=== PATIENT | female | born 1945 | race Caucasian/White ===

== ENCOUNTER → 2016-10-12 | Outpatient (CLI) | payer OTHER, BC ==
[~2016-10-12] VITALS: Ht 166.4 cm; Wt 96.0 kg
[~2016-10-12] MED LIST: ADVAIR 250-501 EACH; ADVAIR HFA120 INHALA IH; ADVIL200 M2 PO; ADVIL200 MG PO; ALIGN10.5 MG PO; Advair HFA 115/21 IH; B-12500 MC1 SL; CALTRATE PLUS1 EACH PO; CEFTIN500 MG PO; COLACE100 MG PO; CRESTOR10 MG PO; CRESTOR5 MG PO; DETROL LA4 MG; Dulcolax PO; Dulcolax PR; ENDOCET 5-3251 EACH PO; FAMOTIDINE40 MG PO; FLEXERIL10 MG PO; FLUOXETINE HCL40 MG PO; Flexeril PO; LIDODERM 5% P1 PATCH TD; MAGNESIUM400 M1 PO; MEDROL DOSEPAK4 MG PO; MORPHINE SULFAT15 MG PO; Milk Of Magnesia,MOM PO; OxyCONTIN PO; PRAVASTATIN SOD80 MG PO; PRILOSEC20 MG PO; PROTONIX40 MG PO; PROZAC10 MG PO; Proventil,Ventolin H IH; RESTASIS 01 DROP/0.4 BOTH EYES; Restasis 0.05% BOTH EYES; Rocephin IV; SENOKOT S,PE1 TABLET PO; SPIRIVA1 INHALATI IH; THERAGRAN1 TABLET PO; Tums,OsCal PO; Tylenol Regular Stre PO; ZOFRAN4 MG PO; Zithromax PO
[2016-10-12 13:03] VITALS: BP 124/62
== END | disposition home or self-care (01) ==
LOC: IVINF 10-11 15:00
DX: M81.0 Age-related osteoporosis without current pathological fracture (principal); Z88.5 Allergy status to narcotic agent; Z88.8 Allergy status to other drugs, medicaments and biological substances; Z91.048 Other nonmedicinal substance allergy status
CPT/HCPCS: 96365; J3489

== ENCOUNTER → 2017-02-14 | Outpatient (CLI) | payer MEDICARE, BC | END | disposition home or self-care (01) | LOC: CDC 11:12 | DX: Z01.810 Encounter for preprocedural cardiovascular examination (principal); M65.332 Trigger finger, left middle finger; M79.642 Pain in left hand; I44.0 Atrioventricular block, first degree | CPT/HCPCS: 93000 ==

== ENCOUNTER 2017-02-28 11:32 | Emergency (ER) | payer OTHER, BC ==
[~2017-02-28] VITALS: Ht 165.1 cm; Wt 75.3 kg
[2017-02-28 14:12] LABS: CHLORIDE 109 mEq/L (99-109); POTASSIUM 3.5 mEq/L (3.7-5.4); SODIUM 142 mEq/L (136-147)
[2017-02-28 14:14] LABS: GLUCOSE 105 mg/dL (70-99)
[2017-02-28 14:16] LABS: ANION GAP 10 MEQ/L (2-14)
[2017-02-28 14:18] LABS: GFR ESTIMATE (CALCULATED) > 59 mL/min/
[2017-02-28 14:19] LABS: UREA NITROGEN (BUN) 16 mg/dL (9-23)
[2017-02-28 17:44] VITALS: BP 118/70
== END 2017-02-28 17:45 | disposition home or self-care (01) ==
LOC: EME 11:32
PROVIDERS: Physician Assistant
DX: R06.00 Dyspnea, unspecified (principal); Z85.118 Personal history of other malignant neoplasm of bronchus and lung; Z98.890 Other specified postprocedural states; Z87.891 Personal history of nicotine dependence; K21.9 Gastro-esophageal reflux disease without esophagitis; F41.9 Anxiety disorder, unspecified; F32.9 Major depressive disorder, single episode, unspecified; Z88.8 Allergy status to other drugs, medicaments and biological substances
CPT/HCPCS: 71020; 78582; 80048; 85379; 94640; 99281; 99283; A9539; A9540

== ENCOUNTER → 2017-10-19 | Outpatient (CLI) | payer OTHER | END | disposition home or self-care (01) | LOC: NUC 10-13 08:30 | DX: R11.2 Nausea with vomiting, unspecified (principal) | CPT/HCPCS: 78264; A9541 ==

== ENCOUNTER 2017-11-01 11:55 | Emergency (ER) | payer OTHER ==
[~2017-11-01] VITALS: Ht 154.9 cm; Wt 77.6 kg
[2017-11-01 12:51] LABS: HEMATOCRIT 40.5 % (36.0-46.0); HEMOGLOBIN 13.5 G/DL (11.9-15.5); MCH 31.8 PG (29.0-34.0); MCHC 33.3 G/DL (30.0-36.0); MCV 95.5 FL (83-99); PLATELET COUNT 224 K/uL (156-360); RBC DIS.WIDTH-CV 12.8 % (11.8-14.6); RBC DIS.WIDTH-SD 45.1 % (39-53); RED BLOOD COUNT 4.24 M/uL (3.80-5.20); WHITE BLOOD COUNT 4.5 K/uL (4.1-10.2)
[2017-11-01 13:04] LABS: APPEARANCE CLEAR ((CLEAR)); BILIRUBIN NEGATIVE; BLOOD SMALL; COLOR STRAW ((YELLOW)); GLUCOSE (STRIP) NEGATIVE; KETONES NEGATIVE; LEUKOCYTES NEGATIVE; NITRITE NEGATIVE; PROTEIN (STRIP) NEGATIVE; SPECIFIC GRAVITY 1.009 (1.000-1.030); UROBILINOGEN 0.2 MG/DL (0.2-1.0)
[2017-11-01 13:09] LABS: BACTERIA RARE /HPF; EPITHELIAL CELLS NONE SEEN /HPF; MUCUS NONE SEEN /LPF; UCUL ADDED? NO; WHITE BLOOD CELLS 0-5 /HPF (0-5)
[2017-11-01 13:24] LABS: ALBUMIN 4.3 G/DL (3.2-4.8); ALKALINE PHOSPHATASE 58 IU/L (3-129); ALT (GPT) 10 IU/L (3-49); AST (GOT) 16 IU/L (2-34); CHLORIDE 106 MEQ/L (99-109); CREATININE 1.1 MG/DL (0.6-1.3); GFR ESTIMATE (CALCULATED) 52 mL/min/; GLUCOSE 99 mg/dL (70-99); POTASSIUM 4.1 MEQ/L (3.7-5.4); SODIUM 141 MEQ/L (136-147); TOTAL BILIRUBIN 0.8 MG/DL (0.0-1.0); TOTAL PROTEIN 6.8 G/DL (6.4-8.3); UREA NITROGEN (BUN) 24 mg/dL (9-23)
[2017-11-01 15:13] LABS: LIPASE 21 U/L (1.0-51.0)
[2017-11-01] MEDS ORDERED: BENTYL20 MG PO (15:19)
[2017-11-01] MEDS ORDERED: CITRATE OF MAG296 ML PO (15:19)
[2017-11-01 15:41] VITALS: BP 127/79
== END 2017-11-01 15:43 | disposition home or self-care (01) ==
LOC: EME 11:55
DX: R10.84 Generalized abdominal pain (principal); F32.9 Major depressive disorder, single episode, unspecified; F41.9 Anxiety disorder, unspecified; K21.9 Gastro-esophageal reflux disease without esophagitis; Z85.118 Personal history of other malignant neoplasm of bronchus and lung; Z96.641 Presence of right artificial hip joint; Z88.2 Allergy status to sulfonamides; Z87.891 Personal history of nicotine dependence; Z91.013 Allergy to seafood
CPT/HCPCS: 74176; 80053; 81003; 83690; 85027; 99281; 99284; J7030